=== PATIENT | female | born 1950 | race Caucasian/White ===

== ENCOUNTER 2016-06-10 09:18 | Outpatient (CLI) | payer OTHER | END 2016-06-10 19:56 | disposition home or self-care (01) | LOC: SMA 09:18 | DX: Z12.31 Encounter for screening mammogram for malignant neoplasm of breast (principal) | CPT/HCPCS: 77067; G0202 ==

== ENCOUNTER 2016-07-17 09:44 | Outpatient (CLI) | payer OTHER | END 2016-07-17 18:31 | disposition home or self-care (01) | LOC: SMA 09:44 | PROVIDERS: ATTEND Family Medicine | DX: N64.89 Other specified disorders of breast (principal); R92.8 Other abnormal and inconclusive findings on diagnostic imaging of breast | CPT/HCPCS: G0206 ×2 ==

== ENCOUNTER 2017-10-16 09:34 | Outpatient (CLI) | payer OTHER | END 2017-10-16 19:32 | disposition home or self-care (01) | LOC: SMA 09:34 | PROVIDERS: ATTEND Family Medicine | DX: Z12.31 Encounter for screening mammogram for malignant neoplasm of breast (principal) | CPT/HCPCS: 77067 ==

== ENCOUNTER 2017-10-22 10:20 | Outpatient (CLI) | payer OTHER | END 2017-10-22 20:27 | disposition home or self-care (01) | LOC: SUS 10:20 | PROVIDERS: ATTEND Family Medicine | DX: R92.8 Other abnormal and inconclusive findings on diagnostic imaging of breast (principal) | CPT/HCPCS: 76642 ==

== ENCOUNTER 2018-11-19 07:55 | Outpatient (CLI) | payer OTHER | END 2018-11-19 20:54 | disposition home or self-care (01) | LOC: SMA 07:55 | PROVIDERS: ATTEND Family Medicine | DX: Z12.31 Encounter for screening mammogram for malignant neoplasm of breast (principal) | CPT/HCPCS: 77067 ==